=== PATIENT | female | born 1985 | race Hispanic/Latino ===

== ENCOUNTER 2024-08-05 15:48 | Emergency (ER) | payer BC ==
[~2024-08-05] VITALS: Ht 170.2 cm; Wt 92.8 kg
[2024-08-05] MEDS ORDERED: CONTRAVE ER 8-1 EACH PO (16:38)
[2024-08-05 18:09] VITALS: PULSE 80; RESP 16; TEMP 98.4; O2SAT 99
== END 2024-08-05 18:09 | disposition home or self-care (01) ==
LOC: FSED 16:35
DX: R40.0 Somnolence (principal); R68.2 Dry mouth, unspecified; T50.995A Adverse effect of other drugs, medicaments and biological substances, initial encounter; Y92.89 Other specified places as the place of occurrence of the external cause
CPT/HCPCS: 70450; 99283